=== PATIENT | female | born 1995 | race Native Hawaiian/Other Pacific Islander ===

== ENCOUNTER 2019-08-20 23:11 | Outpatient (CLI) | payer SELFPAY ==
[2019-08-21 00:18] VITALS: BP 110/65
[2019-08-21 01:10] LABS: Bacteria,Urine 1+ /HPF (Negative); Bilirubin,Urine NEG (Negative); Blood,Urine NEG (Negative); Color,Urine Straw (Yellow); Protein,Urine <15 mg/dL mg/dL (Negative); Urobilinogen,Urine < 2.0 mg/dL (<2.0)
[2019-08-21] MEDS ORDERED: ACETAMINOPHEN 325 MG TAB ONE (01:45)
[2019-08-21] MEDS ORDERED: ACETAMINOPHEN 325 MG TAB PO ONE (01:51)
== END 2019-08-21 01:51 | disposition home or self-care (01) ==
LOC: EDSTATUS 23:50 → TRG 23:54
PROVIDERS: ATTEND Obstetrics & Gynecology
DX: O26.892 Other specified pregnancy related conditions, second trimester (principal); R10.9 Unspecified abdominal pain; Z3A.20 20 weeks gestation of pregnancy
CPT/HCPCS: 81001

== ENCOUNTER 2020-01-05 10:31 | Outpatient (CLI) | payer OTHER ==
[2020-01-05 11:23] VITALS: BP 107/70
== END 2020-01-05 12:51 | disposition home or self-care (01) ==
LOC: APU 10:31 → TRG 10:31
PROVIDERS: ATTEND Obstetrics & Gynecology
DX: O42.913 Preterm premature rupture of membranes, unspecified as to length of time between rupture and onset of labor, third trimester (principal); Z3A.39 39 weeks gestation of pregnancy
CPT/HCPCS: 59025

== ENCOUNTER 2021-11-17 13:23 | Inpatient (IN) | payer MEDICAID, OTHER ==
[2021-11-17 15:36] LABS: Basophils # (Auto) 0.1 K/mm3 (0.0-0.1); Basophils % (Auto) 0.8 % (0.0-1.8); Eosinophils # (Auto) 0.2 K/mm3 (0.0-0.4); Eosinophils % (Auto) 2.1 % (0.0-4.3); Hematocrit 44.8 % (30.3-42.9); Lymphocytes # (Auto) 2.7 K/mm3 (1.2-5.4); Lymphocytes % (Auto) 29.5 % (13.4-35.0); Mean Corpuscular HGB Conc 33 % (30-34); Mean Corpuscular Volume 81 fl (79-97); Monocytes # (Auto) 0.6 K/mm3 (0.0-0.8); Platelet Count 420 K/mm3 (140-440); Red Blood Count 5.51 M/mm3 (3.65-5.03); Red Cell Distribution Width 13.7 % (13.2-15.2)
[2021-11-17] MEDS ORDERED: SODIUM CHLORIDE 0.9% 1000 ML 1,000 ML IV ONE ×2 (15:46→18:42)
[2021-11-17] MEDS ORDERED: ONDANSETRON 4 MG/2 ML INJ IV ONE ×2 (15:46→19:35)
[2021-11-17] MEDS ORDERED: HYDROmorphone 1 MG/1 ML INJ IV ONE ×2 (15:46→19:36)
[2021-11-17] MEDS ORDERED: KETOROLAC 30 MG/1 ML INJ IV ONE (15:46)
--- NOTE | 2021-11-17 15:52 | Emergency Department Report ---
ED Abdominal Pain HPI - General Chief Complaint: Abdominal Pain Stated Complaint: RT SIDE PAIN Time Seen by Provider: 11/17/21 15:46 Source: patient Mode of arrival: Ambulatory Limitations: No Limitations - History of Present Illness Initial Comments: Patient is a 26-year-old female that presents emergency room with complaints of right lower quadrant pain. Patient states the pain is a 10 out of 10. Patient states the pain is a stabbing sensation. Patient states that her pain started 3 days ago. Patient states that her pain is worsening. Patient states that 2 days ago she was seen at [facility]. Patient states she had blood, urine and a CT scan. Patient states that all of her studies were normal. Patient states they gave her antibiotics for a possible UTI. Patient states she has not been able to take the antibiotics. Patient denies fever and chills. Patient states she is having nausea and vomiting is not able to hold anything down since her symptoms started. Patient denies blood in her stool. Patient denies blood in her vomitus. Patient also complains of weakness. Patient denies recent travel. Patient denies recent international travel. Patient denies exposure to the novel coronavirus. Patient denies sick contacts. Patient denies fever and chills. Patient denies cough. Patient denies coming in contact with anybody with symptoms of the novel coronavirus.. Complaint: abdominal pain -: Sudden Location: LLQ Radiation: back Migration to: epigastric Severity: severe Severity scale (0 -10): 10 Quality: stabbing Consistency: constant Improves With: rest Worsens With: vomiting, movement Associated Symptoms: nausea, vomiting, diarrhea, constipation. denies: fever, chills, dysuria, hematemesis, hematochezia, melena, hematuria, syncope - Related Data LMP (females 10-50): last week Home Medications Medication Instructions Recorded Confirmed Last Taken Vitamin 1 tab PO DAILY 01/06/20 01/06/20 Unknown Allergies Allergy/AdvReac Type Severity Reaction Status Date / Time No Known Allergies Allergy Verified 11/17/21 14:05 ED Review of Systems ROS: Stated complaint: RT SIDE PAIN Other details as noted in HPI Constitutional: malaise, weakness. denies: chills, fever Eyes: denies: eye pain, eye discharge, vision change ENT: denies: ear pain, throat pain Respiratory: denies: cough, shortness of breath, wheezing Cardiovascular: denies: chest pain, palpitations Endocrine: no symptoms reported Gastrointestinal: as per HPI, abdominal pain, nausea, vomiting, diarrhea, constipation Genitourinary: denies: urgency, dysuria, discharge Musculoskeletal: denies: back pain, joint swelling, arthralgia Skin: denies: rash, lesions Neurological: as per HPI, weakness. denies: headache, paresthesias Psychiatric: denies: anxiety, depression Hematological/Lymphatic: denies: easy bleeding, easy bruising ED Past Medical Hx - Past Medical History Previous Medical History?: Yes Hx Hypertension: No Hx Diabetes: No Hx Deep Vein Thrombosis: No Hx Renal Disease: No Hx Sickle Cell Disease: No Hx Headaches / Migraines: Yes Hx Seizures: No Hx Asthma: No Hx HIV: No - Surgical History Past Surgical History?: No - Family History Family history: no significant - Social History Smoking Status: Never Smoker Substance Use Type: None - Medications Home Medications: Home Medications Medication Instructions Recorded Confirmed Last Taken Type Vitamin 1 tab PO DAILY 01/06/20 01/06/20 Unknown History ED Physical Exam - General Limitations: No Limitations General appearance: alert, in no apparent distress - Head Head exam: Present: atraumatic, normocephalic - Eye Eye exam: Present: normal appearance - ENT ENT exam: Present: mucous membranes moist - Neck Neck exam: Present: normal inspection - Respiratory Respiratory exam: Present: normal lung sounds bilaterally. Absent: respiratory distress - Cardiovascular Cardiovascular Exam: Present: regular rate, normal rhythm. Absent: systolic murmur, diastolic murmur, rubs, gallop - GI/Abdominal GI/Abdominal exam: Present: soft, normal bowel sounds - Extremities Exam Extremities exam: Present: normal inspection - Back Exam Back exam: Present: normal inspection - Neurological Exam Neurological exam: Present: alert, oriented X3 - Psychiatric Psychiatric exam: Present: normal affect, normal mood - Skin Skin exam: Present: warm, dry, intact, normal color. Absent: rash ED Course Vital Signs 11/17/21 11/17/21 14:01 15:47 Temperature 97.8 F Pulse Rate 81 72 Respiratory 20 18 Rate Blood Pressure 127/86 Blood Pressure 110/71 [Left] O2 Sat by Pulse 100 99 Oximetry - Reevaluation(s) Reevaluation #1: I discussed all results with patient. I discussed plan of care with patient. Patient agrees with plan of care and admission. Patient to be admitted to the gynecology service. 11/17/21 19:12 - Consultations Consultation #1: I discussed case with [facility], Dr. Nickerson and he has accepted the patient to be admitted to [facility]. But wants the medical team to follow and be consulted. 11/17/21 19:05 Consultation #2: I discussed the case with Dr. Luciano. Dr. Luciano has accepted the consult. 11/17/21 19:12 ED Medical Decision Making - Lab Data Result diagrams: 11/17/21 15:25 11/17/21 15:25 - Radiology Data Radiology results: report reviewed CT ABDOMEN AND PELVIS WITH CONTRAST INDICATION / CLINICAL INFORMATION: Lower abdominal pain with nausea, vomiting and diarrhea. TECHNIQUE: Axial CT images were obtained through the abdomen and pelvis after Omnipaque 300, [address] scans at this location are performed using CT dose reduction for ALARA by means of automated exposure control. COMPARISON: None available. FINDINGS: LOWER CHEST: No significant abnormality. LIVER: No significant abnormality. GALLBLADDER: No significant abnormality. BILE DUCTS: No significant abnormality. PANCREAS: No significant abnormality. SPLEEN: No significant abnormality. ADRENALS: No significant abnormality. RIGHT KIDNEY / URETER: No significant abnormality. LEFT KIDNEY / URETER: No significant abnormality. STOMACH / SMALL BOWEL: No significant abnormality. COLON: No significant abnormality. APPENDIX: No significant abnormality. PERITONEUM: Mild free fluid. No free air. No fluid collection. LYMPH NODES: Calcified mesenteric nodes. VASCULAR STRUCTURES: No significant abnormality. URINARY BLADDER: No significant abnormality. REPRODUCTIVE ORGANS: 4.4 cm right ovarian cyst. Partially ruptured corpus luteum cyst right ovary. ADDITIONAL FINDINGS: None. SKELETAL SYSTEM: Osteitis condensensans ilii bilaterally. IMPRESSION: 1. 4.4 cm right ovarian cyst. 2. Partially ruptured right corpus luteum cyst with mild free fluid. 3. Benign-appearing calcified mesenteric nodes. - Medical Decision Making Patient is a 26-year-old female that presents emergency room for right lower quadrant abdominal pain, intractable nausea vomiting, weakness. Patient pain started approximate 3 to 4 days ago and is worsening. Patient went to another ER and had a CT scan, labs and urinalysis. Patient was only found to have UTI. Patient was told that the CT scan done was negative. Patient had a repeat CT scan here and it showed a ruptured right ovarian cyst. Due to the amount of pain, a ultrasound was ordered prior to admission. Patient had labs done which showed hyperkalemia and dehydration. I discussed the case with [facility] and they accepted the patient to be admitted but wanted the patient to have management by our medical service. The medical team was consulted and the team accepted the consult, Dr. Luciano. Patient was given calcium chloride prior to admission. Patient had an EKG done prior to admission to verifies no EKG changes. Patient given normal saline in the ER. Patient also given Dilaudid, Zofran and Toradol. Patient continues to complain of pain and nausea in the ER. Patient did not tolerate a p.o. challenge. Patient admitted to the [facility] at [facility], Dr. Nickerson accepted the patient. Critical care time documented due to the multiple reassessments, prolonged time at the bedside, interpretation of diagnostics and labs and discussion with consultants. - Differential Diagnosis Appendicitis, dehydration, ovarian cyst, electrolyte imbalance. Critical Care Time: Yes Critical care time in (mins) excluding proc time.: 35 Critical care attestation.: If time is entered above; I have spent that time in minutes in the direct care of this critically ill patient, excluding procedure time. Critical Care Time: 35 minutes ED Disposition Clinical Impression: Hyperkalemia, Weakness, Ruptured ovarian cyst, Intractable nausea and vomiting Abdominal pain Qualifiers: Abdominal location: right lower quadrant Qualified Code(s): R10.31 - Right lower quadrant pain Nausea & vomiting Qualifiers: Vomiting type: unspecified Qualified Code(s): R11.2 - Nausea with vomiting, unspecified Disposition: 09 ADMITTED INPATIENT Is pt being admited?: Yes Does the pt Need Aspirin: No Condition: Critical Instructions: Abdominal Pain (ED) Time of Disposition: 19:33
[2021-11-17 15:56] LABS: Blood Urea Nitrogen 5 mg/dL (7-17); Calcium 9.9 mg/dL (8.4-10.2); Hemolysis Index 434
[2021-11-17 15:59] LABS: BUN/Creatinine Ratio 8
[2021-11-17 16:30] LABS: Bacteria,Urine 1+ /HPF (Negative); Bilirubin,Urine NEG (Negative); Blood,Urine NEG (Negative); Color,Urine Straw (Yellow); Mucus,Urine FEW /HPF; Protein,Urine <15 mg/dL mg/dL (Negative); Urobilinogen,Urine < 2.0 mg/dL (<2.0)
[2021-11-17 17:18] LABS: Alanine Aminotransferase 24 units/L (7-56)
[2021-11-17 17:36] LABS: Bilirubin,Direct < 0.2 mg/dL (0-0.2)
--- NOTE | 2021-11-17 18:17 | Cat Scan Report ---
CT ABDOMEN AND PELVIS WITH CONTRAST INDICATION / CLINICAL INFORMATION: Lower abdominal pain with nausea, vomiting and diarrhea. TECHNIQUE: Axial CT images were obtained through the abdomen and pelvis after Omnipaque 300, 100 cc I V contrast. All CT scans at this location are performed using CT dose reduction for ALARA by means o f automated exposure control. COMPARISON: None available. FINDINGS: LOWER CHEST: No significant abnormality. LIVER: No significant abnormality. GALLBLADDER: No significant abnormality. BILE DUCTS: No significant abnormality. PANCREAS: No significant abnormality. SPLEEN: No significant abnormality. ADRENALS: No significant abnormality. RIGHT KIDNEY / URETER: No significant abnormality. LEFT KIDNEY / URETER: No significant abnormality. STOMACH / SMALL BOWEL: No significant abnormality. COLON: No significant abnormality. APPENDIX: No significant abnormality. PERITONEUM: Mild free fluid. No free air. No fluid collection. LYMPH NODES: Calcified mesenteric nodes. VASCULAR STRUCTURES: No significant abnormality. URINARY BLADDER: No significant abnormality. REPRODUCTIVE ORGANS: 4.4 cm right ovarian cyst. Partially ruptured corpus luteum cyst right ovary. ADDITIONAL FINDINGS: None. SKELETAL SYSTEM: Osteitis condensensans ilii bilaterally. IMPRESSION: 1. 4.4 cm right ovarian cyst. 2. Partially ruptured right corpus luteum cyst with mild free fluid. 3. Benign-appearing calcified mesenteric nodes. Signer Name: Froylan Alegria MD Signed: 11/17/2021 6:13 PM Workstation Name: [id number]
[2021-11-17] MEDS ORDERED: cefTRIAXone/NS 2 GM/100 ML 2 GM/100 ML BAG IV ONE (18:42)
[2021-11-17] MEDS ORDERED: CALCIUM CHLORIDE 1,000 MG in SODIUM CHLORIDE 0.9% 100 ML IV ONE (19:12)
--- NOTE | 2021-11-17 19:45 | Ultrasound Report ---
ULTRASOUND PELVIS INDICATION / CLINICAL INFORMATION: severe abd pain. ovarian cyst with rupture. TECHNIQUE: Transvaginal. Duplex Color Doppler used: Yes. COMPARISON: None available FINDINGS: UTERUS: Uterus measures 7.5 cm in length. Endometrial stripe measures 9 mm. RIGHT ADNEXA: The right ovary measures 6.8 cm in length. There is a 3.3 cm complicated cyst in the ri ght ovary. This is consistent with a hemorrhagic cyst and is considered to be benign in the patient w as age. Normal color Doppler blood flow. LEFT ADNEXA: No significant ovarian cyst or mass. Normal color Doppler blood flow. URINARY BLADDER: No significant abnormality. FREE FLUID: There is a trace amount of free fluid characteristic of physiologic fluid ADDITIONAL FINDINGS: None. IMPRESSION: 1. There is a complicated cyst in the right ovary which measures 3.3 cm. At this size in this patient 's age this is considered benign. No follow-up is needed. Signer Name: Keith Paz MD Signed: 11/17/2021 7:41 PM Workstation Name: [id number]
--- NOTE | 2021-11-17 21:02 | Consultation ---
History of Present Illness - Reason for Consult Consult date: 11/17/21 Medical management Requesting physician: STEPH MONK - History of Present Illness 26-year-old speaking female with history of headaches comes in for right lower quadrant pain of 3 days duration. Pain is intermittent and sharp in nature. Overall intensity of pain is 10/10. Associated with nausea and vomiting. Patient went to [facility] emergency room and blood urine and a CAT scan. Appar ently all the tests were normal and treated her with antibiotics for possible UTI. Patient continued to have right lower quadrant pain associated with nausea and vomiting and is not able to hold anything down since her symptoms started. No blood in the vomitus. No fever or chills. No exacerbating or relieving factors. - Past Medical History Previous Medical History?: Yes --Headaches / Migraines: Yes - Surgical History Past Surgical History?: No - Family History Family history: no significant - Social History Smoking Status: Never Smoker Substance Use Type: None - Medications Home Medications: Home Medications Medication Instructions Recorded Confirmed Last Taken Type Vitamin 1 tab PO DAILY 01/06/20 01/06/20 Unknown History Review of Systems ROS: Stated complaint: RT SIDE PAIN Other details as noted in HPI Constitutional: malaise, weakness. denies: chills, fever Eyes: denies: eye pain, eye discharge, vision change ENT: denies: ear pain, throat pain Respiratory: denies: cough, shortness of breath, wheezing Cardiovascular: denies: chest pain, palpitations Endocrine: no symptoms reported Gastrointestinal: as per HPI, severe right lower quadrant pain associated with nausea and vomiting Genitourinary: denies: urgency, dysuria, discharge Musculoskeletal: denies: back pain, joint swelling, arthralgia Skin: denies: rash, lesions Neurological: as per HPI, weakness. denies: headache, paresthesias Psychiatric: denies: anxiety, depression Hematological/Lymphatic: denies: easy bleeding, easy bruising Medications and Allergies Allergies Allergy/AdvReac Type Severity Reaction Status Date / Time No Known Allergies Allergy Verified 11/17/21 14:05 Home Medications Medication Instructions Recorded Confirmed Last Taken Type Vitamin 1 tab PO DAILY 01/06/20 01/06/20 Unknown History Exam - Constitutional Vitals: Temp Pulse Resp BP Pulse Ox 97.8 F 72 18 110/71 100 11/17/21 14:01 11/17/21 15:47 11/17/21 15:47 11/17/21 15:47 11/17/21 20:01 General appearance: Present: no acute distress, well-nourished - EENT Eyes: Present: PERRL ENT: hearing intact, clear oral mucosa - Neck Neck: Present: supple, normal ROM - Respiratory Respiratory effort: normal Respiratory: bilateral: CTA - Cardiovascular Heart rate: 78 Rhythm: regular Heart Sounds: Present: S1 & S2. Absent: rub, click - Extremities Extremities: pulses symmetrical, No edema Peripheral Pulses: within normal limits - Abdominal General gastrointestinal: Present: soft, tender, non-distended, normal bowel sounds Localized gastrointestinal: tender: RLQ, guarding: RLQ, rebound: RLQ Female genitourinary: Present: normal - Integumentary Integumentary: Present: clear, warm, dry - Musculoskeletal Musculoskeletal: gait normal, strength equal bilaterally - Psychiatric Psychiatric: appropriate mood/affect, intact judgment & insight - Neurologic Neurologic: CNII-XII intact, moves all extremities - Allied Health Allied health notes reviewed: nursing, case management Results - Labs CBC & Chem 7: 11/18/21 04:14 11/18/21 04:14 Labs: Abnormal lab results 11/17/21 11/17/21 11/17/21 Range/Units 15:25 15:25 16:10 RBC 5.51 H (3.65-5.03) M/mm3 Hgb 15.0 H (10.1-14.3) gm/dl Hct 44.8 H (30.3-42.9) % MCH 27 L (28-32) pg Sodium 132 L (137-145) mmol/L Potassium 5.9 H (3.6-5.0) mmol/L Chloride 95.9 L (98-107) mmol/L BUN 5 L (7-17) mg/dL AST 49 H (5-40) units/L Total Protein 8.8 H (6.3-8.2) g/dL Abdomen/pelvis CAT scan Impression 4.4 cm right ovarian cyst Partially ruptured right corpus luteum cyst with mild free fluid Benign appearing calcified mesenteric nodes Ultrasound of the pelvis Complicated cyst in the right ovary which measures 3.3 cm. There is trace amount of free fluid characteristic of physiologic fluid Hemorrhagic cyst Short CBC 11/17/21 11/18/21 Range/Units 15:25 04:14 WBC 9.1 9.3 (4.5-11.0) K/mm3 Hgb 15.0 H 12.2 (10.1-14.3) gm/dl Hct 44.8 H 36.4 D (30.3-42.9) % Plt Count 420 333 (140-440) K/mm3 BMP 11/17/21 11/18/21 15:25 04:14 Sodium 132 L 136 L Potassium 5.9 H 3.5 L D Chloride 95.9 L 104.2 Carbon Dioxide 22 21 L BUN 5 L 5 L Creatinine 0.6 0.5 L Glucose 87 92 Calcium 9.9 8.6 Liver Function 11/17/21 11/18/21 Range/Units 16:10 04:14 Total Bilirubin 0.40 0.30 (0.1-1.2) mg/dL Direct Bilirubin < 0.2 (0-0.2) mg/dL AST 49 H 16 (5-40) units/L ALT 24 14 (7-56) units/L Alkaline Phosphatase 111 93 (35-129) units/L Albumin 5.0 3.3 L (3.9-5) g/dL Urine 11/17/21 Range/Units 15:23 Urine Color Straw (Yellow) Urine pH 6.0 (5.0-7.0) Ur Specific [place] 1.003 (1.003-1.030) Urine Protein <15 mg/dl (Negative) mg/dL Urine Glucose (UA) Neg (Negative) mg/dL Assessment and Plan - Patient Problems (1) Ruptured ovarian cyst Current Visit: Yes Status: Acute Plan to address problem: Ruptured right ovarian cyst and hemorrhagic cyst Will defer to CLINICAL REVIEW SPECIALIST Pain control and antiemetics in the meantime (2) Hyperkalemia Current Visit: Yes Status: Acute Plan to address problem: Patient given IV calcium gluconate and IV sodium bicarbonate Repeat BMP If necessary Kayexalate to be given (3) Hyponatremia Current Visit: Yes Status: Acute Plan to address problem: Mild Secondary to vomiting and gastritis IV normal saline for now Recheck sodium level (4) Intractable nausea and vomiting Current Visit: Yes Status: Acute Plan to address problem: IV Zofran and IV Reglan. If necessary Phenergan suppositories (5) DVT prophylaxis Current Visit: Yes Status: Acute Plan to address problem: On SCDs and GI prophylaxis (6) Advance care planning Current Visit: Yes Status: Acute Plan to address problem: Disease education conducted, care plan discussed, diagnosis discussed, prognosis discussed. Patient acknowledges understanding and agrees with care plan. +30 minutes.
[2021-11-17] MEDS ORDERED: SODIUM BICARB 8.4% 50 MEQ/50 ML SYRINGE IV ONE (21:09)
[2021-11-17] MEDS ORDERED: SODIUM CHLORIDE 0.9% 1000 ML 1,000 ML IV SCH (21:15)
[2021-11-17] MEDS ORDERED: METOCLOPRAMIDE 10 MG/2 ML INJ IV PRN (21:19)
[2021-11-17] MEDS ORDERED: ACETAMINOPHEN 325 MG TAB PO PRN (21:19)
[2021-11-17] MEDS ORDERED: ONDANSETRON 4 MG/2 ML INJ IV PRN (21:19)
[2021-11-17] MEDS ORDERED: MORPHINE 2 MG/1 ML INJ IV PRN (21:19)
[2021-11-17] MEDS ORDERED: HYDROmorphone 1 MG/1 ML INJ IV PRN (21:55)
[2021-11-17] MEDS ORDERED: FAMOTIDINE 20 MG/2 ML INJ IV SCH (22:00)
[2021-11-17] MEDS ORDERED: PIPERACIL/TAZOBACTA 4.5/NS 100 4.5 GM/100 ML VIAL IV SCH (22:00)
[2021-11-17] MEDS ORDERED: HEPARIN 5,000 UNIT/1 ML VIAL SUB-Q SCH (22:00)
[2021-11-18 04:35] LABS: Basophils % (Auto) 0.2 % (0.0-1.8); Eosinophils # (Auto) 0.2 K/mm3 (0.0-0.4); Eosinophils % (Auto) 2.5 % (0.0-4.3); Hemoglobin 12.2 gm/dl (10.1-14.3); Lymphocytes # (Auto) 3.6 K/mm3 (1.2-5.4); Lymphocytes % (Auto) 39.2 % (13.4-35.0); Mean Corpuscular HGB Conc 34 % (30-34); Mean Corpuscular Volume 81 fl (79-97); Monocytes # (Auto) 0.7 K/mm3 (0.0-0.8); Monocytes % (Auto) 7.7 % (0.0-7.3); Platelet Count 333 K/mm3 (140-440); Red Cell Distribution Width 13.9 % (13.2-15.2)
[2021-11-18 04:47] LABS: Hematocrit 36.4 % (30.3-42.9)
[2021-11-18 05:12] LABS: Alanine Aminotransferase 14 units/L (7-56); Albumin 3.3 g/dL (3.9-5); Blood Urea Nitrogen 5 mg/dL (7-17); Calcium 8.6 mg/dL (8.4-10.2); Hemolysis Index 3
[2021-11-18 05:35] LABS: BUN/Creatinine Ratio 10
--- NOTE | 2021-11-18 10:48 | Progress Note ---
Assessment and Plan Assessment and plan: #Ruptured ovarian cyst Ruptured right ovarian cyst and hemorrhagic cyst Will defer to COMFORT ADVISOR Pain control and antiemetics in the meantime #Hyperkalemia-resolved -s/p medical management with IV calcium gluconate and IV sodium bicarbonate #Volume depletion -improved s/p IVFs -secondary to N/V #Hyponatremia-resolved -Secondary to vomiting and gastritis -s/p IVF #Intractable nausea and vomiting-resolved -PRN zofran #Advanced care planning -Disease education conducted, care plan discussed, diagnosis discussed, prognosis discussed. Patient acknowledges understanding and agrees with care plan. +30 minutes. History Interval history: No acute events overnight. Patient reports no longer having nausea or vomiting. She was able to tolerate breakfast and lunch without issue. She is not having abdominal pain at this time. Hospitalist Physical - Physical exam Narrative exam: GENERAL: Well-developed well-nourished. In no acute distress. HEENT: Normocephalic. Atraumatic. NECK: Supple. CHEST/LUNGS: CTAB on room air HEART/CARDIOVASCULAR: RRR. No murmur, rubs or gallops appreciated. ABDOMEN: +BS. ND. Mild TTP prominent in RLQ. SKIN: No rashes noted. NEURO: No focal motor deficit. Follows all commands. MUSCULOSKELETAL: No joint effusion EXTREMITIES: No cyanosis, clubbing or edema. PSYCH: Cooperative. - Constitutional Vitals: Temp Pulse Resp BP Pulse Ox 98.3 F 73 16 94/62 99 11/18/21 06:16 11/18/21 06:16 11/18/21 06:16 11/18/21 06:16 11/18/21 06:16 General appearance: Present: no acute distress, well-nourished Results - Labs CBC & Chem 7: 11/18/21 04:14 11/18/21 04:14 Labs: Laboratory Last Values WBC 9.3 K/mm3 (4.5-11.0) 11/18/21 04:14 RBC 4.50 M/mm3 (3.65-5.03) 11/18/21 04:14 Hgb 12.2 gm/dl (10.1-14.3) 11/18/21 04:14 Hct 36.4 % (30.3-42.9) D 11/18/21 04:14 MCV 81 fl (79-97) 11/18/21 04:14 MCH 27 pg (28-32) L 11/18/21 04:14 MCHC 34 % (30-34) 11/18/21 04:14 RDW 13.9 % (13.2-15.2) 11/18/21 04:14 Plt Count 333 K/mm3 (140-440) 11/18/21 04:14 Lymph % (Auto) 39.2 % (13.4-35.0) H 11/18/21 04:14 [place] % (Auto) 7.7 % (0.0-7.3) H 11/18/21 04:14 Eos % (Auto) 2.5 % (0.0-4.3) 11/18/21 04:14 Baso % (Auto) 0.2 % (0.0-1.8) 11/18/21 04:14 Lymph # (Auto) 3.6 K/mm3 (1.2-5.4) 11/18/21 04:14 [place] # (Auto) 0.7 K/mm3 (0.0-0.8) 11/18/21 04:14 Eos # (Auto) 0.2 K/mm3 (0.0-0.4) 11/18/21 04:14 Baso # (Auto) 0.0 K/mm3 (0.0-0.1) 11/18/21 04:14 Seg Neutrophils % 50.4 % (40.0-70.0) 11/18/21 04:14 Seg Neutrophils # 4.7 K/mm3 (1.8-7.7) 11/18/21 04:14 Sodium 136 mmol/L (137-145) L 11/18/21 04:14 Potassium 3.5 mmol/L (3.6-5.0) L D 11/18/21 04:14 Chloride 104.2 mmol/L (98-107) 11/18/21 04:14 Carbon Dioxide 21 mmol/L (22-30) L 11/18/21 04:14 Anion Gap 14 mmol/L 11/18/21 04:14 BUN 5 mg/dL (7-17) L 11/18/21 04:14 Creatinine 0.5 mg/dL (0.6-1.2) L 11/18/21 04:14 Estimated GFR > 60 ml/min 11/18/21 04:14 BUN/Creatinine Ratio 10 % 11/18/21 04:14 Glucose 92 mg/dL (65-100) 11/18/21 04:14 Calcium 8.6 mg/dL (8.4-10.2) 11/18/21 04:14 Total Bilirubin 0.30 mg/dL (0.1-1.2) 11/18/21 04:14 Direct Bilirubin < 0.2 mg/dL (0-0.2) 11/17/21 16:10 Indirect Bilirubin 0.2 mg/dL 11/17/21 16:10 AST 16 units/L (5-40) 11/18/21 04:14 ALT 14 units/L (7-56) 11/18/21 04:14 Alkaline Phosphatase 93 units/L (35-129) 11/18/21 04:14 Total Protein 6.3 g/dL (6.3-8.2) D 11/18/21 04:14 Albumin 3.3 g/dL (3.9-5) L 11/18/21 04:14 Albumin/Globulin Ratio 1.1 % 11/18/21 04:14 Lipase 22 units/L (13-60) 11/17/21 16:10 HCG, Qual Negative (Negative) 11/17/21 16:10 Urine Color Straw (Yellow) 11/17/21 15:23 Urine Turbidity Clear (Clear) 11/17/21 15:23 Urine pH 6.0 (5.0-7.0) 11/17/21 15:23 Ur Specific [place] 1.003 (1.003-1.030) 11/17/21 15:23 Urine Protein <15 mg/dl mg/dL (Negative) 11/17/21 15:23 Urine Glucose (UA) Neg mg/dL (Negative) 11/17/21 15:23 Urine Ketones Tr mg/dL (Negative) 11/17/21 15:23 Urine Blood Neg (Negative) 11/17/21 15:23 Urine Nitrite Neg (Negative) 11/17/21 15:23 Urine Bilirubin Neg (Negative) 11/17/21 15:23 Urine Urobilinogen < 2.0 mg/dL (<2.0) 11/17/21 15:23 Ur Leukocyte Esterase Mod (Negative) 11/17/21 15:23 Urine WBC (Auto) 2.0 /HPF (0.0-6.0) 11/17/21 15:23 Urine RBC (Auto) 15.0 /HPF (0.0-6.0) 11/17/21 15:23 U Epithel Cells (Auto) 6.0 /HPF (0-13.0) 11/17/21 15:23 Urine Bacteria (Auto) 1+ /HPF (Negative) 11/17/21 15:23 Urine Mucus Few /HPF 11/17/21 15:23 Tai/IV: Voiding Method Toilet Active Medications - Current Medications Current Medications: Generic Name Dose Route Start Last Admin Trade Name Freq PRN Reason Stop Dose Admin Acetaminophen 650 mg 11/17/21 21:19 Acetaminophen 325 Mg Tab PO Q4H PRN Pain MILD(1-3)/Fever >100.5/HANNA Famotidine 20 mg 11/17/21 22:00 11/17/21 23:41 Famotidine 20 Mg/2 Ml Inj IV 20 mg BID TRINIDAD Administration Heparin Sodium (Porcine) 5,000 unit 11/17/21 22:00 11/18/21 00:20 Heparin 5,000 Unit/1 Ml Vial SUB-Q 5,000 unit Q12HR TRINIDAD Administration Hydromorphone HCl 1 mg 11/17/21 21:55 Hydromorphone 1 Mg/1 Ml Inj IV Q3H PRN Pain , Severe (7-10) Sodium Chloride 1,000 mls @ 120 mls/hr 11/17/21 21:15 11/17/21 23:45 Nacl 0.9% 1000 Ml IV 120 mls/hr DIRECT TRINIDAD Administration Piperacillin Sod/Tazobactam Sod 4.5 gm in 100 mls @ 200 mls/hr 11/17/21 22:00 11/17/21 23:48 Zosyn/Ns 4.5gm/100ml IV 200 mls/hr Q8HR TRINIDAD Administration Protocol Metoclopramide HCl 10 mg 11/17/21 21:19 11/18/21 00:35 Metoclopramide 10 Mg/2 Ml Inj IV 10 mg Q6H PRN Administration Nausea And Vomiting Morphine Sulfate 2 mg 11/17/21 21:19 Morphine 2 Mg/1 Ml Inj IV Q4H PRN Pain, Moderate (4-6) Ondansetron HCl 4 mg 11/17/21 21:19 Ondansetron 4 Mg/2 Ml Inj IV Q8H PRN Nausea And Vomiting Sodium Chloride 10 ml 11/17/21 22:00 Sodium Chloride 0.9% 10 Ml Flush Syringe IV BID TRINIDAD Sodium Chloride 10 ml 11/17/21 21:19 Sodium Chloride 0.9% 10 Ml Flush Syringe IV PRN PRN LINE FLUSH
--- NOTE | 2021-11-18 11:13 | History and Physical Report ---
History of Present Illness Date of examination: 11/18/21 Date of admission: 11/17/21 21:19 Chief complaint: Pelvic pains x2 days History of present illness: Was well till saturday when she experience a sudden onset pain in her right pelvis. She went to [facility] [place].. Was evaluated and treated for uti. Pain worsened yesterday noon making her to go to [facility] ER where evaluation found a ruptured right ovarian cyst and electrolyte imbalance. She was admitted overnight for observation. Patient rates her pain this morning as 1/10. Past History Past Medical History: no pertinent history - Obstetrical History : 1 Medications and Allergies Allergies Allergy/AdvReac Type Severity Reaction Status Date / Time No Known Allergies Allergy Verified 11/17/21 14:05 Home Medications Medication Instructions Recorded Confirmed Last Taken Type Vitamin 1 tab PO DAILY 01/06/20 01/06/20 Unknown History Active Meds: Active Medications Acetaminophen (Acetaminophen 325 Mg Tab) 650 mg PO Q4H PRN PRN Reason: Pain MILD(1-3)/Fever >100.5/HANNA Famotidine (Famotidine 20 Mg/2 Ml Inj) 20 mg IV BID [facility] Last Admin: 11/17/21 23:41 Dose: 20 mg Heparin Sodium (Porcine) (Heparin 5,000 Unit/1 Ml Vial) 5,000 unit SUB-Q Q12HR [facility] Last Admin: 11/18/21 00:20 Dose: 5,000 unit Hydromorphone HCl (Hydromorphone 1 Mg/1 Ml Inj) 1 mg IV Q3H PRN PRN Reason: Pain , Severe (7-10) Sodium Chloride (Nacl 0.9% 1000 Ml) 1,000 mls @ 120 mls/hr IV DIRECT [facility] Last Admin: 11/17/21 23:45 Dose: 120 mls/hr Piperacillin Sod/Tazobactam Sod (Zosyn/Ns 4.5gm/100ml) 4.5 gm in 100 mls @ 200 mls/hr IV Q8HR [facility]; Protocol Last Admin: 11/17/21 23:48 Dose: 200 mls/hr Metoclopramide HCl (Metoclopramide 10 Mg/2 Ml Inj) 10 mg IV Q6H PRN PRN Reason: Nausea And Vomiting Last Admin: 11/18/21 00:35 Dose: 10 mg Morphine Sulfate (Morphine 2 Mg/1 Ml Inj) 2 mg IV Q4H PRN PRN Reason: Pain, Moderate (4-6) Ondansetron HCl (Ondansetron 4 Mg/2 Ml Inj) 4 mg IV Q8H PRN PRN Reason: Nausea And Vomiting Sodium Chloride (Sodium Chloride 0.9% 10 Ml Flush Syringe) 10 ml IV BID [place] Sodium Chloride (Sodium Chloride 0.9% 10 Ml Flush Syringe) 10 ml IV PRN PRN PRN Reason: LINE FLUSH Review of Systems All systems: negative Genitourinary: pelvic pain - Vital Signs Vital signs: Vital Signs Temp Pulse Resp BP Pulse Ox 97.8 F 81 20 127/86 100 11/17/21 14:01 11/17/21 14:01 11/17/21 14:01 11/17/21 14:01 11/17/21 14:01 Temp Pulse Resp BP Pulse Ox 98.3 F 73 16 94/62 99 11/18/21 06:16 11/18/21 06:16 11/18/21 06:16 11/18/21 06:16 11/18/21 06:16 - Physical Exam Lungs: Positive: Normal air movement Abdomen: Positive: normal appearance, soft, normal bowel sounds. Negative: guarding Deep Tendon Reflex Grade: Normal +2 Results Result Diagrams: 11/18/21 04:14 11/18/21 04:14 Abnormal lab results 11/17/21 11/17/21 11/17/21 Range/Units 15:25 15:25 16:10 RBC 5.51 H (3.65-5.03) M/mm3 Hgb 15.0 H (10.1-14.3) gm/dl Hct 44.8 H (30.3-42.9) % MCH 27 L (28-32) pg Lymph % (Auto) (13.4-35.0) % Wilcox % (Auto) (0.0-7.3) % Sodium 132 L (137-145) mmol/L Potassium 5.9 H (3.6-5.0) mmol/L Chloride 95.9 L (98-107) mmol/L Carbon Dioxide (22-30) mmol/L BUN 5 L (7-17) mg/dL Creatinine (0.6-1.2) mg/dL AST 49 H (5-40) units/L Total Protein 8.8 H (6.3-8.2) g/dL Albumin (3.9-5) g/dL 11/18/21 11/18/21 Range/Units 04:14 04:14 RBC (3.65-5.03) M/mm3 Hgb (10.1-14.3) gm/dl Hct (30.3-42.9) % MCH 27 L (28-32) pg Lymph % (Auto) 39.2 H (13.4-35.0) % Wilcox % (Auto) 7.7 H (0.0-7.3) % Sodium 136 L (137-145) mmol/L Potassium 3.5 L D (3.6-5.0) mmol/L Chloride (98-107) mmol/L Carbon Dioxide 21 L (22-30) mmol/L BUN 5 L (7-17) mg/dL Creatinine 0.5 L (0.6-1.2) mg/dL AST (5-40) units/L Total Protein (6.3-8.2) g/dL Albumin 3.3 L (3.9-5) g/dL All other labs normal. Assessment and Plan - Patient Problems (1) Hyperkalemia Current Visit: Yes Status: Acute Plan to address problem: Hospitalist accepted responsibility to manage this. (2) Ruptured ovarian cyst Current Visit: Yes Status: Acute Plan to address problem: Patient is stable and wishes to go home. She will f/u with own [employer] Hemmer MD as outpatient.
--- NOTE | 2021-11-18 11:24 | Discharge Summary ---
Providers - Providers Date of Admission: 11/17/21 21:19 Date of discharge: 11/18/21 Attending physician: STEPH MONK MD 11/17/21 19:11 Consult to Physician [CONS] Routine Comment: Consulting Provider: JAREN DAVENPORT Physician Instructions: Reason For Exam: hyperkalemia, dehhydration Primary care physician: WIRE CUTTER Hospitalization Reason for admission: other (Ruptured rt ovarian cyst.) Condition at discharge: Good Disposition: 01 HOME / SELF CARE / HOMELESS - Discharge Diagnoses (1) Hyperkalemia Status: Acute (2) Ruptured ovarian cyst Status: Resolved Plan - Provider Discharge Summary Activity: routine, no sex for 6 weeks, no heavy lifting 4 weeks, no strenuous exercise Diet: routine Instructions: routine (Obtain discharge from hospitalist re potassium status.) Additional instructions: [] Smoking cessation referral if applicable(refer to patient education folder for contact #) [] Refer to [facility]'s [facility] Booklet Call your doctor immediately for: * Fever > 100.5 * Heavy vaginal bleeding ( >1 pad per hour) * Severe persistent headache * Shortness of breath * Reddened, hot, painful area to leg or breast * Drainage or odor from incision. * Keep incision clean and dry at all times and follow doctor's instructions regarding bathing/showering - Follow up plan
[2021-11-18 12:19] VITALS: BP 95/60
--- NOTE | 2021-11-21 12:15 | Electrocardiograph Report ---
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
== END 2021-11-18 12:15 | disposition home or self-care (01) | DRG 760 ==
LOC: ED 13:23 → OB 21:19
PROVIDERS: ADMIT Obstetrics & Gynecology; ATTEND Obstetrics & Gynecology
DX: N83.201 Unspecified ovarian cyst, right side (principal); E87.1 Hypo-osmolality and hyponatremia; E87.5 Hyperkalemia; G43.909 Migraine, unspecified, not intractable, without status migrainosus; K29.70 Gastritis, unspecified, without bleeding; Z79.899 Other long term (current) drug therapy
CPT/HCPCS: 36415; 74177; 76830; 80048; 80053; 80076; 81001; 83690; 84703; 85025; 93005; G0378; J3490; J0696; J1170; J1644; J1885; J2405; J2543; J2765; J7030; Q9967